=== PATIENT | female | born 1965 | race Caucasian/White ===

== ENCOUNTER 2022-06-11 22:24 | Emergency (ER) | payer BC ==
[~2022-06-11] VITALS: Ht 175.3 cm; Wt 68.2 kg
[~2022-06-11 22:24] MED LIST: CRUTCHES MC; NORCO 325 MG-51 TAB PO
[2022-06-12 00:11] VITALS: BP 115/72; PULSE 59; TEMP 98
== END 2022-06-12 00:02 | disposition home or self-care (01) ==
LOC: COL.ER 22:24
DX: S52.502A Unspecified fracture of the lower end of left radius, initial encounter for closed fracture (principal); W18.30XA Fall on same level, unspecified, initial encounter